=== PATIENT | female | born 1955 | race Caucasian/White ===

== ENCOUNTER 2023-12-13 19:49 | Emergency (ER) | payer OTHER, MEDICARE, SELFPAY ==
[2023-12-13 19:56] VITALS: BP 166/99
[2023-12-13 20:15] VITALS: BP 135/85
[2023-12-13 20:50] VITALS: BMI 27.6
--- NOTE | 2023-12-13 20:51 | ED.GENMED ---
History of Present Illness
General
Chief Complaint: Chest Pain
Source: patient
Exam Limitations: none
Time Seen by Provider: 12/13/23 20:10
History of Present Illness
History of Present Illness:
This is a 68 year old female that comes in in with c/o chest pain. States that she was not feeling good all day. States that her left arm felt heavy and achy. States that her joints have been hurting all week. States that today her sternum started
to hurt and then the pain went to the left side. States that her bones ache. States that she took a shower and she still had tightness in her chest. States that she felt lightheaded and a little nauseated. Denies any fever, chills, SOB, abd pain,
vomiting, diarrhea, headache, dizziness, urinary burning.
Past History
Past History
ED Past Medical History: GERD, HTN, Hypothyroidism, Psychiatric (Anxiety) and Other (back pain, Hiatal hernia, Incisional hernia, Meniere's disease, vertigo, )
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 )
Social History
Tobacco: Non-smoker
Alcohol: None
Drug: None
Personal:
Living: with family
Employment: Employed
Family History
Family History: CAD and Other (Atrial fibrillation, [place], stroke)
Review of Systems
Review of Systems
All Other Systems: ROS reviewed and negative except as documented in HPI and ROS
Constitutional: Reports no symptoms; Denies fever or chills
EENT: Reports no symptoms
Respiratory: Reports no symptoms; Denies cough or trouble breathing
Cardiac: Reports chest pain
ABD/GI: Reports nausea; Denies abdominal pain, vomiting or diarrhea
: Reports no symptoms; Denies dysuria, frequency or urgency
Musculoskeletal: Reports no symptoms
Skin: Reports no symptoms
Neurological: Reports other (Lightheaded); Denies dizzy or headache
Psychiatric: Reports no symptoms
Phy Exam
General Physical Exam
General Presentation: no apparent distress
General age: appears stated age
General Skin: warm and dry
General Habitus: normal
General Mental: alert
General Hydration: dry mucous membranes
ENT Exam
ENT Exam: TM's normal, pharynx normal and neck supple
Eye Exam
Eye Exam: EOMI
Cardiovascular Exam
Cardiovascular Exam: regular rate/rhythm, no edema, no murmur and normal peripheral pulses
Pulmonary Exam
Pulmonary Exam: lungs clear, no respiratory distress, no rales, chest non tender, no crackles, no rhonchi, no wheezing and no cough
Gastrointestinal Exam
Gastrointestinal Exam: normal bowel sounds, non tender, soft, no organomegaly, no pulsatile mass and non distended
Musculoskeletal Exam
Musculoskeletal Exam: full ROM and no edema
Skin Exam
Skin Exam: normal color, warm/dry, no rash and no petechia
Psychiatric Exam
Psychiatric Exam: normal mood/affect
Scores
Heart Score for Chest Pain Patients
STEMI patient?: No
History: Slightly or Non-Suspicious
ECG: Normal
Age: >/= 65 years
Risk Factors: 1 or 2 Risk Factors
Troponin: </= Normal Limit
Heart Score for Chest Pain Patients: 3
Heart Score Risk: 2.5% MACE over next 6 weeks
Course
Orders/Labs/Results
Orders:
Orders
12/13/23 19:49
EKG [Electrocardiogram (*1)] Stat
Reason for Study: Chest Pain
EKG- Treatment ONCE
12/13/23 20:50
CR Chest - 2 Views Urgent
Comment:
Reason For Exam: Chest pain
12/13/23 20:57
Complete Blood Count/With Diff Urgent
Comprehensive Metabolic Panel Urgent
Lyme Progressive Urgent
Troponin I Urgent
12/13/23 22:43
EKG- Treatment ONCE
12/13/23 22:50
Ketorolac [Toradol] 30 mg IV NOW STA
12/13/23 23:50
Electrocardiogram (*1) Urgent
Reason for Study: Chest Pain
Other Reason for Exam: Repeat with Troponin
12/13/23 23:56
Troponin I Urgent
Abnormal Lab Results
12/13/23
20:57
BUN 21 H mg/dl
(7-17)
Glucose 106 H mg/dl
(70-99)
12/13/23 20:57
12/13/23 20:57
Dehydration. Glucose nonfasting. Troponin <0.012
second Troponin <0.012
Vital Signs
Initial and Last Documented VS:
Initial Vital Signs
Temp Pulse Resp BP Pulse Ox
98.1 F 80 16 166/99 99
12/13/23 19:56 12/13/23 19:56 12/13/23 19:56 12/13/23 19:56 12/13/23 19:56
Last Documented Vital Signs
Temp Pulse Resp BP Pulse Ox
98.1 F 69 10 124/77 97
12/13/23 19:56 12/14/23 00:00 12/14/23 00:00 12/14/23 00:00 12/14/23 00:00
MDM/Problems Addressed
Differential Diagnosis Includes:
coronary syndrome. costochondritis, Lyme disease
MDM/Problems Addressed:
This is a 68 year female that comes in with c/o chest pain. States that she did not feel well all day and then started with sternal pain that went to the left chest.
will check labs, Chest X-ray. Offered patient pain medication but she refused.
Back into see patient. Explained that her blood work shows very slight Dehydration and her Troponin is normal. chest x-ray shows top normal vascularity. will get Second Troponin and give patient Toradol at this time as patient is now in agreement
to try medication.
Repeat ECG: rate 74, NSR, Left axis. Normal QRS, Negative for ischemia. checked by Dr. Estrada
Patient states that she does feel better after the Toradol. States that it is not totally gone but most of it.
Back into see patient. Explained that her second troponin was also negative. This may be Costochondritis. However, will put patient on the Cardiology hot line for further evaluation. Patient to return with increased pain or any other concerns .
Chronic conditions affecting care:
NA
Acute Exacerbation and/or Progression of Chronic Illness:
NA
*Radiology
Radiology exam reviewed: radiology read reviewed (Chest- Pulmonary vascularity at least top normal. )
*Pulse Oximetry
Patient hypoxic: no
*EKG
Interpreted by ED Provider?: Yes
Heart Rate: 94
Rate: normal
Rhythm: sinus
[place]: left axis deviation
Interval: normal interval
QRS Pattern: normal QRS
Ischemia: no ischemia
*Weather Clerk Interpretation
Rate: normal
Heart Rate: 71
Rhythm: sinus
*Critical Care Note
Total Time (30-74mins, 75-104mins- exclusive of procedures): Not Applicable
ED Attending Note
-
Portions of this chart may have been created with voice recognition software.� Occasional wrong word or��sound alike� substitutions may have occurred due to the inherent limitations of voice recognition software.
Discharge Plan
Departure
Patient Disposition: Home (Routine Discharge)
Date of Disposition: 12/14/23
Time of Disposition: 00:33
Patient with high blood pressure during this ER visit?: No
Condition: Good
Covid-19: Not Applicable
Discharge Problem:
Chest pain, Costochondritis
Instructions: Costochondritis (DC), Chest Pain CBC Follow Up
Prescriptions:
New
naproxen 500 mg tablet
500 mg PO BID Qty: 10 0RF
No Action
lorazepam 0.5 MG tablet
0.25 mg PO TIDPRN PRN (Reason: anxiety)
meclizine 25 MG tablet
25 mg PO Q8HPRN PRN (Reason: vertigo)
amlodipine [Norvasc] 10 MG tablet
10 mg PO DAILY
levothyroxine 125 MCG tablet
125 mcg PO DAILY AT 0700
Referrals:
Ozzy Motta, DO [Family Provider] - Call in 1-3 days for appt
Activity Restrictions/Additional Instructions:
As discussed, your blood work showed very slight Dehydration. Otherwise your labs are normal. You have been place on the Cardiology hot line. This means that you will be called the next business day and set up for further evaluation. This could be
costochondritis. You have been given a prescription for Naproxen to help decrease the Inflammation. PLEASE DO NOT TAKE ANY OTHER ALEVE, ADVIL OR IBUPROFEN. Follow up with the family doctor as needed. IF YOU HAVE INCREASED OR CHANGING PAIN, OR YOU
HAVE ANY OTHER CONCERNS PLEASE RETURN TO THE EMERGENCY ROOM.
Interventions
Interventions:
*Risk Screen - Suicide Last Done: 12/13/23 20:50
*General Assessment Last Done: 12/13/23 20:50
*Neglect/Abuse Screening Last Done: 12/13/23 20:50
ED- Fall Risk Assessment Last Done: 12/13/23 20:50
*ED COVID-19 Vaccine History Last Done: 12/13/23 20:50
ED- Cardiac Assessment Last Done: 12/13/23 20:51
Discharge Date and Time
Print Language: SWEDISH
[2023-12-13 21:00] VITALS: BP 125/75
[2023-12-13 21:03] LABS: % Basophils 0.4 % (0-2); % Eosinophils 1.4 % (0-6); % Immature Granulocytes 0.2 % (0-0.5); % Monocytes 7.1 % (1.7-9.3); % Neutrophils 69.9 % (42.2-75.2); Absolute Eosinophils 0.1 10^3/uL (0-0.7); Absolute Lymphocytes 1.7 10^3/uL (1.2-3.4); Absolute Monocytes 0.6 10^3/uL (0.1-0.6); Absolute Neutrophils 5.6 10^3/uL (1.4-6.5); Hematocrit 38.2 % (37.0-47.0); Hemoglobin 13.9 g/dL (12.0-16.0); Mean Corp Hgb Conc. 36.4 g/dL (33.0-37.0); Mean Corpuscular Hgb 30.7 pg (27.0-31.0); Mean Corpuscular Volume 84.3 fL (81.0-99.0); Mean Platelet Volume 9.8 fL (7.4-10.4); Nucleated Red Blood Cells % 0 %; Platelet Count 262 10^3/uL (130-400); Red Blood Cell Count 4.53 10^6/uL (4.20-5.40); White Blood Cell Count 8.1 10^3/uL (4.8-10.8)
[2023-12-13 21:27] LABS: Troponin I < 0.012 ng/ml
[2023-12-13 21:39] LABS: ALT (SGPT) 16 U/L (0-35); AST (SGOT) 20 U/L (14-36); Albumin 4.5 g/dl (3.5-5.0); Alkaline Phosphatase 73 U/L (38-126); Blood Urea Nitrogen 21 mg/dl (7-17); Calcium 9.3 mg/dl (8.4-10.2); Carbon Dioxide 24 mmol/L (22-30); Chloride 106 mmol/L (98-107); Estimated Creatinine Clearance 60 ml/min; Glucose 106 mg/dl (70-99); Potassium 3.9 mmol/L (3.5-5.1); Sodium 140 mmol/L (135-145); Total Bilirubin 0.4 mg/dl (0.2-1.3); Total Protein 7.6 g/dl (6.3-8.2); eGFR > 60.00
[2023-12-13 22:00] VITALS: BP 111/62
[2023-12-13] MEDS: TORADOL 30 MG IV (22:55)
[2023-12-13 23:00] VITALS: BP 132/80
[2023-12-14] VITALS: BP 124/77
[2023-12-14 00:28] LABS: Troponin I < 0.012 ng/ml
[2023-12-14 15:06] LABS: Lyme Antibody Screen, EIA Negative (Negative)
== END 2023-12-14 00:50 | disposition home or self-care (01) ==
LOC: EMR 19:49
PROVIDERS: Clinical Nurse Specialist Family Health; EMERGENCY PHYSICIAN Emergency Medicine; FAMILY PHYSICIAN Family Medicine
DX: M94.0 Chondrocostal junction syndrome [Tietze] (principal); I10 Essential (primary) hypertension; E03.9 Hypothyroidism, unspecified; K21.9 Gastro-esophageal reflux disease without esophagitis; E86.0 Dehydration
CPT/HCPCS: 96374; 99284; 71046; 80053; 84484; 85025; 86618; 93005

== ENCOUNTER → 2024-03-24 14:27 | Outpatient (REF) | payer OTHER, SELFPAY | LOC: HWWDC 14:27 | PROVIDERS: ATTENDING PHYSICIAN Physician Assistant Medical; REFERRING PHYSICIAN Obstetrics & Gynecology | DX: Z12.31 Encounter for screening mammogram for malignant neoplasm of breast (principal) | CPT/HCPCS: 77063; 77067 ==

== ENCOUNTER → 2024-05-02 14:54 | Outpatient (REF) | payer OTHER, SELFPAY | LOC: RAD 14:54 | PROVIDERS: ATTENDING PHYSICIAN Family Medicine | DX: I10 Essential (primary) hypertension (principal) | CPT/HCPCS: 93975 ==

== ENCOUNTER 2024-08-11 06:21 | Day surgery (SDC) | payer OTHER, SELFPAY | END 2024-08-11 11:40 | disposition home or self-care (01) | LOC: GI 06:21 | PROVIDERS: ATTENDING PHYSICIAN Internal Medicine Gastroenterology | DX: K57.30 Diverticulosis of large intestine without perforation or abscess without bleeding (principal); K64.0 First degree hemorrhoids; R13.10 Dysphagia, unspecified; K31.7 Polyp of stomach and duodenum; K44.9 Diaphragmatic hernia without obstruction or gangrene; K21.00 Gastro-esophageal reflux disease with esophagitis, without bleeding; K22.89 Other specified disease of esophagus; K51.40 Inflammatory polyps of colon without complications; D12.3 Benign neoplasm of transverse colon; K63.5 Polyp of colon | CPT/HCPCS: 45385; 45380; 43239; 88305 ==